=== PATIENT | male | born 1965 | race Caucasian/White ===

== ENCOUNTER 2017-10-01 10:43 | Emergency (ER) | payer OTHER ==
[2017-10-01] MEDS ORDERED: Adacel (T-DAP) 0.5 ML VIAL ONE (11:17)
[2017-10-01] MEDS ORDERED: Lidocaine 1% (PF) 30 ML VIAL ONE (12:13)
--- NOTE | 2017-10-01 12:18 | RAD ---
THREE VIEW LEFT THUMB: CLINICAL HISTORY: Open fracture. FINDINGS: There is a distracted fracture of the thumb, distal phalangeal tuft with overlying soft tissue irreg ularity. There is a small heterotopic density adjacent the anterior base of the thumb, distal phala nx. IMPRESSION: Avulsed fracture of the thumb, distal phalangeal tuft, with slight comminution. POS: [facility]
[2017-10-01] MEDS ORDERED: Morphine 10 MG/ML VIAL ONE (14:29)
== END 2017-10-01 15:00 | disposition home or self-care (01) ==
LOC: ERS 10:43
DX: S62.522B Displaced fracture of distal phalanx of left thumb, initial encounter for open fracture (principal); E78.5 Hyperlipidemia, unspecified; Z79.899 Other long term (current) drug therapy; W23.0XXA Caught, crushed, jammed, or pinched between moving objects, initial encounter
CPT/HCPCS: 11760; 90471; 90715; 96374; J2001; J2270